=== PATIENT | female | born 1970 | race Caucasian/White ===

== ENCOUNTER 2018-10-05 08:00 | Outpatient (CLI) | payer MEDICAID | END 2018-10-05 09:00 | disposition home or self-care (01) | LOC: D.MAMMO 08:00 | DX: Z12.31 Encounter for screening mammogram for malignant neoplasm of breast (principal) ==

== ENCOUNTER 2019-05-14 10:07 | Outpatient (CLI) | payer MEDICAID | END 2019-05-14 10:12 | disposition home or self-care (01) | LOC: D.MAMMO 10:07 | PROVIDERS: ATTEND Nurse Practitioner | DX: R92.8 Other abnormal and inconclusive findings on diagnostic imaging of breast (principal) ==

== ENCOUNTER 2019-10-29 19:30 | Outpatient (CLI) | payer MEDICAID | END 2019-10-29 23:59 | disposition home or self-care (01) | LOC: D.MAMMO 19:30 | DX: Z12.31 Encounter for screening mammogram for malignant neoplasm of breast (principal) ==

== ENCOUNTER 2020-08-03 16:00 | Outpatient (CLI) | payer MEDICAID | END 2020-08-03 23:59 | disposition home or self-care (01) | LOC: D.MAMMO 16:00 | PROVIDERS: ATTEND Nurse Practitioner | DX: N63.12 Unspecified lump in the right breast, upper inner quadrant (principal) ==